=== PATIENT | male | born 1975 | race American Indian/Alaskan Native ===

== ENCOUNTER 2017-08-31 14:30 | Emergency (ER) | payer MEDICAID ==
[2017-08-31 14:54] VITALS: BP 113/68; PULSE 58; RESP 20; TEMP 98.2; O2SAT 100
--- NOTE | 2017-08-31 15:29 | C.PDOC ---
History Of Present Illness 42-year-old male, presents to the emergency department requesting detox from alcohol, marijuana, cocaine and PCP. Patient last drank this afternoon, at 13: 00. Denies any SI/HI. PT denies any medical problems and has no complaints. Time Seen by Provider: 08/31/17 15:13 Chief Complaint (Nursing): Substance Abuse History Per: Patient History/Exam Limitations: no limitations Past Medical History Reviewed: Historical Data, Nursing Documentation, Vital Signs Vital Signs: Last Vital Signs Temp 98.2 F 08/31/17 14:53 Pulse 58 L 08/31/17 14:53 Resp 20 08/31/17 14:53 BP 113/68 08/31/17 14:53 Pulse Ox 100 08/31/17 15:45 Family History: States: No Known Family Hx - Social History Hx Alcohol Use: Yes Hx Substance Use: Yes - Immunization History Hx Tetanus Toxoid Vaccination: No Hx Influenza Vaccination: No Review Of Systems Constitutional: Negative for: Fever, Chills Cardiovascular: Negative for: Chest Pain, Palpitations Respiratory: Negative for: Shortness of Breath Gastrointestinal: Negative for: Vomiting Psych: Negative for: Suicidal ideation, Withdrawal Physical Exam - Physical Exam Appears: Non-toxic, No Acute Distress Skin: Normal Color, Warm, Dry, No Rash Head: Atraumatic, Normacephalic Eye(s): bilateral: Normal Inspection, EOMI Nose: Normal Oral Mucosa: Moist Lips: Normal Appearing Neck: Normal ROM Chest: Symmetrical Cardiovascular: Rhythm Regular Respiratory: Normal Breath Sounds, No Accessory Muscle Use Gastrointestinal/Abdominal: Soft, No Tenderness Extremity: Normal ROM, No Deformity, No Swelling Neurological/Psych: Oriented x3, Normal Speech ED Course And Treatment O2 Sat by Pulse Oximetry: 100 (RA) Pulse Ox Interpretation: Normal Progress Note: PT ate sandwich. Informed there area no detox beds available, pt will be discharged and educated on pre screening process, given a list of other detox facilities. All questions answered. Disposition - Disposition Disposition: HOME/ ROUTINE Disposition Time: 15:44 Condition: STABLE Additional Instructions: [facility] [phone] for bed availability. Instructions: Drug Abuse and Drug Addiction (DC) Forms: [facility] ([place]) - Clinical Impression Clinical Impression: Drug dependence - Scribe Statement The provider has reviewed the documentation as recorded by the Scribe (Perfecto Green) All medical record entries made by the Scribe were at my direction and personally dictated by me. I have reviewed the chart and agree that the record accurately reflects my personal performance of the history, physical exam, medical decision making, and the department course for this patient. I have also personally directed, reviewed, and agree with the discharge instructions and disposition.
== END 2017-08-31 16:09 | disposition home or self-care (01) ==
LOC: C.ER 14:30
DX: F19.20 Other psychoactive substance dependence, uncomplicated (principal)